=== PATIENT | female | born 2000 | race Asian ===

== ENCOUNTER 2021-09-29 10:13 | Emergency (ER) | payer OTHER ==
[~2021-09-29] VITALS: Ht 160 cm; Wt 53.1 kg
[2021-09-29 10:15] VITALS: BP 108/55
== END 2021-09-29 11:10 | disposition home or self-care (01) ==
LOC: ER 10:46
DX: R05.9 Cough, unspecified (principal); Z20.822 Contact with and (suspected) exposure to COVID-19
CPT/HCPCS: C9803; U0003